=== PATIENT | male | born 1960 | race Caucasian/White ===

== ENCOUNTER 2019-03-04 14:00 | Outpatient (CLI) | payer MEDICARE, MEDICAID | END 2019-03-04 23:59 | disposition home or self-care (01) | LOC: RAD 14:00 | PROVIDERS: ATTEND Internal Medicine | DX: J98.4 Other disorders of lung (principal); D83.1 Common variable immunodeficiency with predominant immunoregulatory T-cell disorders; Z21 Asymptomatic human immunodeficiency virus [HIV] infection status; Z79.899 Other long term (current) drug therapy | CPT/HCPCS: 71046 ==